=== PATIENT | male | born 1955 | race Caucasian/White ===

== ENCOUNTER 2017-10-18 04:43 | Emergency (ER) | payer SELFPAY ==
[~2017-10-18] VITALS: Ht 175.3 cm; Wt 82.6 kg
[2017-10-18 04:55] VITALS: BP_SYST 155
--- NOTE | 2017-10-18 05:00 | NUR ---
Patient AAOx3, ambulatory. Patient states having left flank pain which radiates to left lower back since approximately 0200 this morning. Patient states pain is sudden onset, denies mechanism of injury. Patient +nausea, +vomiting. Patient denies blood in vomit. Patient states flank pain is pain scale 9/10 at this time with a sharp sensation. Patient states the pain is causing him to have some difficulty with urination. Patient denies any other complaints.
--- NOTE | 2017-10-18 05:00 | NUR ---
Patient to ER bed 08 to gown for evaluation. Side rails up. Report given to EDEN Schroeder.
--- NOTE | 2017-10-18 05:01 | NUR ---
ER at bedside examining patient.
[2017-10-18] MEDS ORDERED: ONDANSETRON 4 MG ODT TAB PO ONE (05:15)
[2017-10-18] MEDS ORDERED: KETOROLAC TROMETHAMINE 60 MG/2 ML VIAL IM ONE (05:15)
[2017-10-18 05:30] LABS: BASOPHILS # (AUTO) 0.1 K/uL (0.0-0.2); EOSINOPHILS # (AUTO) 0.4 K/uL (0.0-0.4); EOSINOPHILS % (AUTO) 5.9 % (0.0-4.0); HEMATOCRIT 43.7 % (36-54); HEMOGLOBIN 14.8 g/dL (14.0-18.0); LYMPHOCYTES # (AUTO) 1.8 K/uL (1.0-5.5); LYMPHOCYTES % (AUTO) 25.4 % (20.5-51.5); MEAN CORPUSCULAR HEMOGLOBIN 32 pg (27-31); MEAN CORPUSCULAR HGB CONC 34 % (32-36); MEAN CORPUSCULAR VOLUME 95 fL (79.0-98.0); MONOCYTES # (AUTO) 0.6 K/uL (0.0-1.0); MONOCYTES % (AUTO) 8.9 % (1.7-9.3); NEUTROPHILS # (AUTO) 4.1 K/uL (1.8-7.7); NEUTROPHILS % (AUTO) 58.8 % (40.0-70.0); PLATELET COUNT (AUTO) 204 K/uL (130-430); RED BLOOD CELL COUNT(AUTO) 4.61 MIL/uL (4.2-6.2); RED CELL DISTRIBUTION WIDTH 12.4 % (9.0-15.0)
[2017-10-18 05:39] LABS: CALCIUM 9.6 mg/dL (8.4-11.0); CREATININE 1.32 mg/dL (0.55-1.30); POTASSIUM 4.4 mmol/L (3.5-5.1)
[2017-10-18 05:40] LABS: BILIRUBIN,URINE NEGATIVE (NEGATIVE); BLOOD, URINE NEGATIVE (NEGATIVE); CLARITY/URINE CLEAR (CLEAR); COLOR,URINE YELLOW (YELLOW); GLUCOSE,URINE NEGATIVE (NEGATIVE); KETONES,URINE NEGATIVE (NEGATIVE); LEUKOCYTE ESTERASE ,URINE NEGATIVE (NEGATIVE); NITRITE, URINE NEGATIVE (NEGATIVE); PH,URINE 5.5 (5.0-8.0); PROTEIN URINE NEGATIVE (NEGATIVE); UROBILINOGEN,URINE 0.2 (0.2-1.0)
[2017-10-18 05:44] LABS: ALBUMIN 4.3 g/dL (3.4-4.8); TOTAL BILIRUBIN 0.5 mg/dL (0.0-1.0)
--- NOTE | 2017-10-18 06:44 | NUR ---
Patient calmly resting in ER bed, vital signs within therapeutic range.
--- NOTE | 2017-10-18 07:00 | NUR ---
Patient calmly resting in ER bed, no signs of distress noted.
[2017-10-18 07:10] VITALS: BP_SYST 142
--- NOTE | 2017-10-18 07:10 | NUR ---
Patient given written and verbal discharge instructions and verbalizes understanding. ER MD discussed with patient the results and treatment provided. Patient in stable condition. ID arm band removed. Rx of toradol given. Patient educated on pain management and to follow up with PMD. Pain Scale 0/10. Opportunity for questions provided and answered.
== END 2017-10-18 07:10 | disposition home or self-care (01) ==
LOC: SED 04:43
DX: N20.0 Calculus of kidney (principal)
CPT/HCPCS: 36415; 74176; 80053; 81003; 85025; 96372; 99285; J1885; Q0162

== ENCOUNTER 2019-11-02 08:33 | Emergency (ER) | payer BC, MEDICAID ==
[~2019-11-02] VITALS: Ht 175.3 cm; Wt 81.6 kg
--- NOTE | 2019-11-02 08:38 | NUR ---
ER in triage examining patient.
[2019-11-02 08:42] VITALS: BP_SYST 159
--- NOTE | 2019-11-02 08:45 | NUR ---
Patient to ER bed 6 to gown for evaluation. Side rails up. Report given to Becky HARMON.
--- NOTE | 2019-11-02 08:46 | NUR ---
Patient arrived in the ED c/o sinus pain, pressure and congestion that's ongoing for a while Patient denied any chest pain or shortness of breath. Denied any fevers, chills, nausea, or vomiting. Patient is alert and oriented x4, respirations even and unlabored, speaking in full sentences, ambulating with a steady gait. VSS, pain level 0/10. Informed of approximate wait time. Instructed to notify ED staff for any changes in condition or worsening of symptoms. Patient verbalized understanding.
--- NOTE | 2019-11-02 09:08 | NUR ---
Patient given written and verbal discharge instructions and verbalizes understanding. ER MD discussed with patient the results and treatment provided. Patient in stable condition. ID arm band removed. Rx of Prednisone given. Patient educated on pain management and to follow up with PMD. Pain Scale 0/10. Opportunity for questions provided and answered. Medication side effect fact sheet provided.
[2019-11-02 09:14] VITALS: BP_SYST 136
== END 2019-11-02 09:14 | disposition home or self-care (01) ==
LOC: SED 08:33
DX: R09.81 Nasal congestion (principal)
CPT/HCPCS: 99283

== ENCOUNTER 2021-07-26 07:40 | Day surgery (SDC) | payer BC, MEDICAID, SELFPAY ==
[~2021-07-26] VITALS: Ht 175.3 cm; Wt 79.4 kg
[2021-07-26] MEDS: HYDROmorphone 2 MG/ML VIAL IVP PRN ×2 (09:33→09:50)
[2021-07-26] MEDS ORDERED: HYDROmorphone 1 MG/ML INJ. CARTRIDGE IVP PRN ×2 (09:45)
[2021-07-26] MEDS ORDERED: ONDANSETRON HCL 4 MG/2 ML VIAL IVP PRN ×2 (09:45→12:30)
[2021-07-26] MEDS ORDERED: WATER FOR IRRIGATION,STERILE 1,000 ML IRRIG.SOLN IR ONE (12:07)
[2021-07-26] MEDS ORDERED: DESFLURANE 15 MIN GAS INH ONE (12:07)
[2021-07-26] MEDS ORDERED: METOCLOPRAMIDE HCL 10 MG/2 ML VIAL IVP ONE (12:07)
[2021-07-26] MEDS ORDERED: OXYMETAZOLINE HCL 0.05% NASAL SPRAY NS ONE (12:07)
[2021-07-26] MEDS ORDERED: SUCCINYLCHOLINE CHLORIDE 20 MG/ML(QUELICIN) IVP ONE (12:07)
[2021-07-26] MEDS ORDERED: NS 1000 ML IV.SOLN IV ONE (12:07)
[2021-07-26] MEDS ORDERED: NS IRRIG SOLN 1000 ML IR ONE (12:07)
[2021-07-26] MEDS ORDERED: ROCURONIUM BROMIDE 10 MG/ML (ZEMURON) IV ONE (12:07)
[2021-07-26] MEDS ORDERED: PROPOFOL 200MG/ 20ML VIAL (DIPRIVAN) IV ONE (12:07)
[2021-07-26] MEDS ORDERED: fentaNYL CITRATE/PF 100 MCG/2 ML AMP IVP ONE (12:07)
[2021-07-26] MEDS ORDERED: DEXAMETHASONE SOD PHOSPHATE 4 MG/ML VIAL IVP ONE (12:07)
[2021-07-26] MEDS ORDERED: LIDOCAINE/EPI 1% 1:100000 20 ML VIAL INJ ONE (12:07)
[2021-07-26] MEDS ORDERED: HYDROmorphone 1 MG/ML INJ. CARTRIDGE IVP ONE (12:07)
[2021-07-26] MEDS ORDERED: hydrALAZINE HCL 20 MG/ML VIAL IVP ONE (12:07)
[2021-07-26] MEDS ORDERED: LABETALOL 100 MG/ 20ML VIAL IVP ONE (12:07)
[2021-07-26] MEDS ORDERED: SUGAMMADEX SODIUM 200 MG/2 ML VIAL IV ONE (12:07)
[2021-07-26] MEDS ORDERED: HYDROcodone/ACETAMIN 5-325 MG TAB (NORCO/ VICODIN) PO PRN (12:30)
[2021-07-26] MEDS ORDERED: ONDANSETRON 4 MG ODT TAB PO PRN (12:30)
[2021-07-26] MEDS ORDERED: HYDROmorphone 1 MG/ML INJ. CARTRIDGE ONE (12:42)
[2021-07-26 15:46] VITALS: BP_SYST 137
== END 2021-07-26 14:55 | disposition home or self-care (01) ==
LOC: SDS 07:40 → SMU 07:42 → SDS 14:55
PROVIDERS: ATTEND Otolaryngology
DX: J32.9 Chronic sinusitis, unspecified (principal); J33.0 Polyp of nasal cavity; J32.8 Other chronic sinusitis; I10 Essential (primary) hypertension; J33.9 Nasal polyp, unspecified; Z88.6 Allergy status to analgesic agent; Z79.899 Other long term (current) drug therapy; Z20.822 Contact with and (suspected) exposure to COVID-19
CPT/HCPCS: 31259; 31267; 31296; 71046; 88305; 93005; A4649; C1726; J0330; J0360; J1100; J1170; J2704; J2765; J3010; J3490 ×2; J7030; U0003

== ENCOUNTER 2022-07-31 14:00 | Emergency (ER) | payer BC, MEDICAID ==
[~2022-07-31] VITALS: Ht 175.3 cm; Wt 79.8 kg
[2022-07-31 14:21] VITALS: BP_SYST 146
--- NOTE | 2022-07-31 15:30 | NUR ---
PT BIB SELF AWAKE AND ALERT, AO X4. PERRLA. NO SOB OR DISTRESS. PT STATED THAT HE WAS TOLD BY HIS PCP TO COME TO ER DUE TO ELEVATED D-DIMER. VSS. O2SAT 96% ROOM AIR. PT DENIES N/V AND PAIN.
--- NOTE | 2022-07-31 15:40 | NUR ---
MD DR PARISI AT BEDSIDE
[2022-07-31 16:32] LABS: BASOPHILS # (AUTO) 0.1 K/uL (0.0-0.2); BASOPHILS % (AUTO) 1.2 % (0.0-2.0); EOSINOPHILS # (AUTO) 0.7 K/uL (0.0-0.4); EOSINOPHILS % (AUTO) 11.6 % (0.0-4.0); HEMOGLOBIN 13.8 g/dL (14.0-18.0); LYMPHOCYTES # (AUTO) 1.6 K/uL (1.0-5.5); LYMPHOCYTES % (AUTO) 28.6 % (20.5-51.5); MEAN CORPUSCULAR HEMOGLOBIN 33 pg (27-31); MEAN CORPUSCULAR HGB CONC 35 % (32-36); MEAN CORPUSCULAR VOLUME 93 fL (79.0-98.0); MONOCYTES # (AUTO) 0.6 K/uL (0.0-1.0); MONOCYTES % (AUTO) 10.4 % (1.7-9.3); NEUTROPHILS # (AUTO) 2.7 K/uL (1.8-7.7); NEUTROPHILS % (AUTO) 48.2 % (40.0-70.0); PLATELET COUNT (AUTO) 192 K/uL (130-430); RED BLOOD CELL COUNT(AUTO) 4.19 MIL/uL (4.2-6.2); WHITE BLOOD COUNT (AUTO) 5.6 K/uL (4.8-10.8)
[2022-07-31 16:39] LABS: PROTHROMBIN TIME 10.2 SECS (9.5-12.5)
--- NOTE | 2022-07-31 16:42 | NUR ---
SERENA OBTAINED AND SENT TO LAB LABELED
[2022-07-31 16:55] LABS: ALBUMIN 3.6 g/dL (3.4-4.8); CREATININE 1.15 mg/dL (0.55-1.30); TOTAL BILIRUBIN 0.7 mg/dL (0.0-1.0)
[2022-07-31] MEDS ORDERED: iohexoL 350 mgI/mL, 100 ML INFUS..BTL IV ONE (17:31)
[2022-07-31 19:42] VITALS: BP_SYST 146
== END 2022-07-31 19:42 | disposition home or self-care (01) ==
LOC: SED 14:00
DX: R06.02 Shortness of breath (principal); R05.9 Cough, unspecified; Z88.6 Allergy status to analgesic agent; Z79.899 Other long term (current) drug therapy; Z20.822 Contact with and (suspected) exposure to COVID-19
CPT/HCPCS: 99285; 71275; 71045; 87426; 80053; 83880; 85025; 85379; 85610; 85730; 36415; 93005; 76376; Q9967